=== PATIENT | male | born 1950 | race Hispanic/Latino ===

== ENCOUNTER 2018-02-27 12:50 | Observation (INO) | payer MEDICARE ==
[~2018-02-27] VITALS: Ht 167.6 cm; Wt 62.1 kg
[~2018-02-27 12:50] MED LIST: INSULIN SQ; LIPITOR20 MG PO; LISINOPRIL10 MG PO; METFORMIN HCL500 MG PO; REGULAR INSULIN SQ
[2018-02-27] MEDS ORDERED: SODIUM CHLORIDE 0.9% 1000ML 1,000 ML IV STA (13:10)
[2018-02-27] MEDS ORDERED: SODIUM CHLORIDE 0.9% 1000ML 1,000 ML ONE (13:12)
[2018-02-27 13:22] LABS: BASOPHILS % 0.2 % (0.0-1.0); EOSINOPHILS % 0.1 % (0.0-6.0); HEMATOCRIT 34.1 % (38.2-49.6); HEMOGLOBIN 11.8 g/dL (14.0-18.0); LYMPHOCYTES # (AUTO) 1.1 (1.0-3.2); LYMPHOCYTES % 13.9 % (18.0-39.1); MEAN CORPUSCULAR HEMOGLOBIN 30.3 pg (28-32); MEAN CORPUSCULAR HGB CONC 34.6 g/dL (31-35); MEAN CORPUSCULAR VOLUME 87.7 fL (81-99); MONOCYTES # (AUTO) 0.5 (0.2-0.8); MONOCYTES % 6.5 % (4.4-11.3); NEUTROPHILS # (AUTO) 6.3 (2.1-6.9); NEUTROPHILS % 78.9 % (38.7-80.0); PLATELET COUNT 250 x10e3/uL (140-360); RED BLOOD COUNT 3.89 x10e6/uL (4.3-5.7)
[2018-02-27 13:32] LABS: INR 0.99; PROTHROMBIN TIME 12.3 seconds (11.9-14.5)
[2018-02-27 13:33] LABS: PARTIAL THROMBOPLASTIN TIME 26.9 seconds (23.8-35.5)
--- NOTE | 2018-02-27 13:38 | Diagnostic Imaging Report ---
PROCEDURE:CHEST SINGLE (PORTABLE) TECHNIQUE:Portable AP chest INDICATION:Dizziness COMPARISON:None. FINDINGS: Lungs are clear and symmetrically inflated. No pleural effusions. Normal heart size, mediastinal contour, pulmonary vasculature. CONCLUSION: Normal study. Dictated by: Taye Burnett M.D. on 02/27/2018 at 13:41 Electronically approved by: Taye Burnett M.D. on 02/27/2018 at 13:41
[2018-02-27 13:42] LABS: ALANINE AMINOTRANSFERASE 9 IU/L (0-55); ALBUMIN/GLOBULIN RATIO 1.9 (0.8-2.0); ALKALINE PHOSPHATASE 58 IU/L (40-150); AMYLASE 97 U/L (25-125); ANION GAP 12.2 mmol/L (8-16); BLOOD UREA NITROGEN 16 mg/dL (7-26); BUN/CREATININE RATIO 11 (6-25); CALCIUM 9.4 mg/dL (8.4-10.2); CARBON DIOXIDE 28 mmol/L (22-29); CHLORIDE 105 mmol/L (98-107); CREATINE KINASE 68 IU/L (30-200); CREATININE, SERUM 1.43 mg/dL (0.72-1.25); EST GLOMERULAR FILTRATION RATE 49 ML/MIN (60-); GLUCOSE 195 mg/dL (74-118); LIPASE 23 U/L (8-78); POTASSIUM 4.2 mmol/L (3.5-5.1); SODIUM 141 mmol/L (136-145)
[2018-02-27 13:53] LABS: B-TYPE NATRIURETIC PEPTIDE2 < 10.0 pg/mL (0-100)
[2018-02-27 13:54] LABS: MAGNESIUM 1.1 MG/DL (1.3-2.1)
[2018-02-27] MEDS ORDERED: MAGNESIUM SULFATE 2GM/50ML 50 ML IV ONE (14:15)
[2018-02-27 15:05] LABS: BILIRUBIN,URINE NEGATIVE (NEGATIVE); CLARITY,URINE SL CLOUDY (CLEAR); COLOR,URINE YELLOW (YELLOW); KETONES,URINE TRACE (NEGATIVE); LEUKOCYTE ESTERASE ,URINE NEGATIVE (NEGATIVE); NITRITE,URINE NEGATIVE (NEGATIVE); PROTEIN,URINE DIPSTICK NEGATIVE (NEGATIVE); URINE UROBILINOGEN 0.2 mg/dL (0.2 - 1)
[2018-02-27 15:16] LABS: BACTERIA,URINE FEW /HPF; EPITHELIAL CELLS,URINE MANY /LPF; WBC,URINE (MAN) 0-5 /HPF (0-5)
[2018-02-27] MEDS ORDERED: DEXTROSE 50% SYRINGE 50 ML IV PRN (16:00)
--- NOTE | 2018-02-27 16:12 | History and Physical ---
PRIMARY CARE PHYSICIAN: Dr. Gonzalez CHIEF COMPLAINT: Dizziness. HISTORY OF PRESENT ILLNESS: This is a 67-year-old man with a history of diabetes mellitus, now developing dizziness for the past week. Went to his primary care doctor and given meclizine, but no improvement in his symptoms. Therefore, he came to the hospital. He has been drinking a lot of water at home. He denies any chest pain. Denies any nausea, vomiting or diarrhea. Denies any fever, chills or sweats. Denies any other symptoms. Denies any room spinning in particular. The patient was found to have a low blood pressure of 90/56 and heart rate of 108. Admitted for further evaluation and management. PAST MEDICAL HISTORY: Diabetes mellitus, type 2, hypertension, hyperlipidemia, cigarette abuse. PAST SURGICAL HISTORY: Unknown. ALLERGIES: PER ELECTRONIC MEDICAL RECORD. FAMILY HISTORY/SOCIAL HISTORY: Patient is . He smokes half a pack of cigarettes per day. Occasional alcohol. No illicits. MEDICATIONS: Per electronic medical record. REVIEW OF SYSTEMS: Denies any chest pain, shortness of breath, fever, chills, or sweats. PHYSICAL EXAMINATION VITAL SIGNS: Have been reviewed. GENERAL: A tired-appearing man resting in bed. HEENT: Anicteric. Pupils respond to light. No oral lesions. He has dry mucous membranes. CARDIOVASCULAR: Normal S1 and S2. LUNGS: Moderate breath sounds. ABDOMEN: Soft, nontender and nondistended. EXTREMITIES: No edema or calf tenderness. NEUROLOGICAL: Alert and oriented times 3. Moving all extremities. SKIN: Dry. PSYCHIATRIC: Normal affect. LABS: Reviewed. MEDICATIONS: Reviewed. ASSESSMENT AND PLAN: This is a 67-year-old man with: 1. Dizziness: Likely related to dehydration. Will rehydrate and reassess. 2. Hypotension: Will rehydrate the patient and reassess. 3. Tachycardia secondary to dehydration: tachycardia. Rehydrate and reassess. 4. Normocytic anemia, mild to moderate: Will follow. 5. Hypomagnesemia: Will replace and recheck. 6. Acute kidney injury: Rehydrate and reassess. 7. Diabetes mellitus, type 2: Obtain hemoglobin A1c and lipid panel. 8. Hyperlipidemia: Continue statin medication. 9. Hypertension: Will add antihypertensive medication at this time. 10. Prophylaxis: Will use sequential compression devices and Pepcid. 11. Disposition: Will obtain cardiac enzymes and follow up labs. Job#: [id number] DEEDEE
[2018-02-27 16:13] LABS: CHOL/HDL RATIO 2.6 (3.9-4.7)
[2018-02-27] MEDS: SODIUM CHLORIDE 0.9% 1000ML 1,000 ML IV SCH (16:30)
[2018-02-27] MEDS: INSULIN REGULAR, HUMAN 100 UNIT/1 ML 3ML VIAL SQ SCH ×2 (16:34→21:13)
--- OUTSIDE RECORDS SUMMARY | 2018-02-27 16:50 | XMS REPORT ---
Author Author [facility] Address Unknown Phone Unavailable Care Team Providers Care De Icer Element Winder Name Role Phone PRINCESS WEBER Unavailable Unavailable Problems This patient has no known problems. Allergies, Adverse Reactions, Alerts This patient has no known allergies or adverse reactions. Medications This patient has no known medications. Results Test Description Test Time Test Comments Text Results Atomic Results Result Comments CHEST SINGLE (PORTABLE) [place] [address] Patient Name: CANDIDO PEREZ MR #: [id number] : 1950 Age/Sex: 67/M Req #: [id number] [facility] Physician: Ordered by: JIGNESH DAVILA GOVERNMENT RELATIONS MANAGER Report #: [id number] Location: ER Room/Bed: Procedure: [id number] DX/CHEST SINGLE (PORTABLE) Exam Date: 02/27/18 Exam Time: 1313 REPORT STATUS: Signed PROCEDURE: CHEST SINGLE (PORTABLE) TECHNIQUE: Portable AP chest INDICATION: Dizziness COMPARISON: None. FINDINGS: Lungs are clear and symmetrically inflated. No pleural effusions. Normal heart size, mediastinal contour, pulmonary vasculature. CONCLUSION: Normal study. Dictated by: Suman Burnett M.D. on 02/27/2018 at 13:41 Electronically approved by: Suman Burnett M.D. on 02/27/2018 at 13:41 Dictated By: SUMAN BURNETT MD 1341 Transcribed By: YELITZA on 02/27/18 1341 COPY TO: JIGNESH DAVILA NP
[2018-02-27 18:08] VITALS: BP 152/83
[2018-02-27 18:34] VITALS: BP 152/83
[2018-02-27 18:53] VITALS: BP 152/83
[2018-02-27 19:00] VITALS: BP 123/60
[2018-02-27] MEDS ORDERED: ASPIR 8181 MG (19:01)
[2018-02-27] MEDS ORDERED: LOSARTAN POTASS25 MG (19:01)
[2018-02-27] MEDS ORDERED: CILOSTAZOL100 MG PO (19:01)
[2018-02-27] MEDS ORDERED: GLIPIZIDE5 MG PO (19:01)
[2018-02-27] MEDS ORDERED: MECLIZINE HCL12.5 MG PO (19:01)
[2018-02-27 21:26] VITALS: BP 123/60
[2018-02-27 21:31] VITALS: BP 123/60
[2018-02-28] VITALS: BP 160/69
[2018-02-28] MEDS: SODIUM CHLORIDE 0.9% 1000ML 1,000 ML IV SCH (04:47)
[2018-02-28 05:00] VITALS: BP 164/77
[2018-02-28 06:34] LABS: BASOPHILS % 0.3 % (0.0-1.0); EOSINOPHILS % 0.4 % (0.0-6.0); HEMATOCRIT 34.5 % (38.2-49.6); HEMOGLOBIN 11.8 g/dL (14.0-18.0); LYMPHOCYTES # (AUTO) 1.3 (1.0-3.2); MEAN CORPUSCULAR HEMOGLOBIN 30.4 pg (28-32); MEAN CORPUSCULAR HGB CONC 34.2 g/dL (31-35); MEAN CORPUSCULAR VOLUME 88.9 fL (81-99); MONOCYTES # (AUTO) 0.5 (0.2-0.8); MONOCYTES % 7.2 % (4.4-11.3); NEUTROPHILS # (AUTO) 5.3 (2.1-6.9); NEUTROPHILS % 73.7 % (38.7-80.0); PLATELET COUNT 237 x10e3/uL (140-360); RED BLOOD COUNT 3.88 x10e6/uL (4.3-5.7); RED CELL DISTRIBUTION WIDTH 12.7 % (11.7-14.4)
[2018-02-28 06:52] LABS: ANION GAP 12.1 mmol/L (8-16); BLOOD UREA NITROGEN 11 mg/dL (7-26); BUN/CREATININE RATIO 13 (6-25); CALCIUM 9.1 mg/dL (8.4-10.2); CARBON DIOXIDE 27 mmol/L (22-29); CHLORIDE 104 mmol/L (98-107); CREATININE, SERUM 0.83 mg/dL (0.72-1.25); EST GLOMERULAR FILTRATION RATE > 60 ML/MIN (60-); GLUCOSE 203 mg/dL (74-118); POTASSIUM 4.1 mmol/L (3.5-5.1); SODIUM 139 mmol/L (136-145)
[2018-02-28] MEDS: INSULIN REGULAR, HUMAN 100 UNIT/1 ML 3ML VIAL SQ SCH ×2 (07:30→11:30)
[2018-02-28 08:01] VITALS: BP 154/80
--- NOTE | 2018-02-28 08:40 | Discharge Summary ---
PRINCIPAL DIAGNOSES 1. Dizziness. 2. Hypotension secondary to dehydration. 3. Tachycardia secondary to dehydration. 4. Normocytic anemia, mild to moderate. 5. Hypomagnesemia. 6. Acute kidney injury. 7. Diabetes mellitus, type 2. Hemoglobin A1c 7.3. 8. Hypertension. 9. Hyperlipidemia. LDL 76, triglycerides 93. SECONDARY DIAGNOSIS: Diabetes mellitus, type 2. CHIEF COMPLAINT: Dizziness. HISTORY OF PRESENT ILLNESS: This is a 67-year-old man with dizziness. Refer to the H and P for further details. HOSPITAL COURSE: The patient was found to have dizziness. He was dehydrated and had acute kidney injury. He had normocytic anemia and hypomagnesemia. Magnesium was replaced. The patient is doing better and currently appropriate for discharge and follow up. DISCHARGE MEDICATIONS: Per electronic medical record. FOLLOWUP: Primary care doctor in 1 week. CONDITION ON DISCHARGE: Stable and improved. DISCHARGE LOCATION: Home. ТАТЬЯНА PALMER MD Job#: [id number] [place]
[2018-02-28] MEDS ORDERED: ATORVASTATIN 20 MG TAB PO SCH (09:00)
[2018-02-28 12:00] VITALS: BP 155/75
[2018-02-28 12:09] VITALS: BP 155/75
== END 2018-02-28 13:08 | disposition home or self-care (01) ==
LOC: ER 12:50 → ERHOLD 16:47 → IMCU 17:24
PROVIDERS: ADMIT Internal Medicine; ATTEND Internal Medicine
DX: E86.0 Dehydration (principal); R53.1 Weakness; E83.42 Hypomagnesemia; R42 Dizziness and giddiness; E11.9 Type 2 diabetes mellitus without complications; Z72.0 Tobacco use; I95.9 Hypotension, unspecified; R00.0 Tachycardia, unspecified; D64.9 Anemia, unspecified; N17.9 Acute kidney failure, unspecified; I10 Essential (primary) hypertension; E78.5 Hyperlipidemia, unspecified
CPT/HCPCS: 36415 ×2; 71045; 80048; 80053; 80061; 81001; 82150; 82550; 82553; 82948 ×2; 83036; 83605; 83690; 83735; 83880; 84443; 84484; 85025 ×2; 85610; 85730; 87040; 93005; 96372; 97139; 99284; G0378 ×2; J7030 ×2

== ENCOUNTER → 2018-03-03 | Outpatient (CLI) | payer MEDICARE ==
[~2018-03-03] MED LIST changes: +ASPIR 8181 MG; +CILOSTAZOL100 MG PO; +GLIPIZIDE5 MG PO; +LOSARTAN POTASS25 MG; +MECLIZINE HCL12.5 MG PO
== END ==
LOC: CARD 13:26
PROVIDERS: ATTEND Internal Medicine
DX: R42 Dizziness and giddiness (principal)
CPT/HCPCS: 93880

== ENCOUNTER 2018-05-16 11:10 | Emergency (ER) | payer MEDICARE ==
[~2018-05-16] VITALS: Ht 167.6 cm; Wt 62.1 kg
[2018-05-16 12:14] LABS: BASOPHILS % 0.5 % (0.0-1.0); EOSINOPHILS % 0.2 % (0.0-6.0); HEMATOCRIT 35.8 % (38.2-49.6); HEMOGLOBIN 12.3 g/dL (14.0-18.0); LYMPHOCYTES % 16.6 % (18.0-39.1); MEAN CORPUSCULAR HEMOGLOBIN 30.8 pg (28-32); MEAN CORPUSCULAR HGB CONC 34.4 g/dL (31-35); MEAN CORPUSCULAR VOLUME 89.5 fL (81-99); MONOCYTES # (AUTO) 0.4 (0.2-0.8); MONOCYTES % 7.1 % (4.4-11.3); NEUTROPHILS # (AUTO) 4.4 (2.1-6.9); NEUTROPHILS % 74.4 % (38.7-80.0); PLATELET COUNT 302 x10e3/uL (140-360); RED CELL DISTRIBUTION WIDTH 12.6 % (11.7-14.4)
[2018-05-16 12:18] LABS: INR 0.96
[2018-05-16 12:19] LABS: PARTIAL THROMBOPLASTIN TIME 26.9 seconds (23.8-35.5)
--- NOTE | 2018-05-16 12:19 | Diagnostic Imaging Report ---
PROCEDURE: X-RAY CHEST, TWO VIEWS COMPARISON: Patients [facility], DX, CHEST SINGLE (PORTABLE), 02/27/2018, 13:24. INDICATIONS: VERTIGO FINDINGS: LUNGS: No consolidations or edema. PLEURA: No effusions or pneumothorax. HEART \T\ MEDIASTINUM: The heart is within normal size-limits. Calcification within the aorta. BONES \T\ SOFT TISSUES: No acute findings. CONCLUSION: No acute thoracic abnormality. Kailash Padgett D.O. Dictated by: Kailash Padgett D.O. on 05/16/2018 at 12:25 Electronically approved by: Kailash Padgett D.O. on 05/16/2018 at 12:25
--- NOTE | 2018-05-16 12:20 | Diagnostic Imaging Report ---
Exam: Head CT without contrast History: Dizziness Comparison studies: None Technique: Axial images were obtained from the skull base to the vertex. Coronal and sagittal images reconstructed from the axial data. Intravenous contrast: None Findings: Scalp: No abnormalities. Bones: No fractures, blastic or lytic lesions. Brain sulci: Mild prominent.. Ventricles: Mild compensatory dilatation. No hydrocephalus. Extra-axial spaces: No masses, no fluid collection. Parenchyma: No abnormal densities. No masses, acute hemorrhage, acute or chronic vascular insults. Sellar/suprasellar region: No abnormalities. Craniocervical junction: Patent foramen magnum. No Chiari one malformation. Incidental findings: Atherosclerotic calcifications in the carotid siphons and intradural vertebral arteries. Right intraocular lens replacement related to previous cataract surgery. IMPRESSION: 1. No acute intracranial abnormalities. 2. Mild age-related generalized volume loss. Signed by: Dr. Mati Yu M.D. on 05/16/2018 12:17 PM
[2018-05-16 12:28] LABS: ALANINE AMINOTRANSFERASE 8 IU/L (0-55); ALBUMIN 3.8 g/dL (3.5-5.0); ALBUMIN/GLOBULIN RATIO 1.4 (0.8-2.0); ALKALINE PHOSPHATASE 65 IU/L (40-150); ANION GAP 16.2 mmol/L (8-16); BLOOD UREA NITROGEN 21 mg/dL (7-26); BUN/CREATININE RATIO 23 (6-25); CALCIUM 9.2 mg/dL (8.4-10.2); CARBON DIOXIDE 26 mmol/L (22-29); CHLORIDE 101 mmol/L (98-107); CREATINE KINASE 70 IU/L (30-200); EST GLOMERULAR FILTRATION RATE > 60 ML/MIN (60-); GLUCOSE 222 mg/dL (74-118); POTASSIUM 4.2 mmol/L (3.5-5.1); SODIUM 139 mmol/L (136-145)
[2018-05-16 13:03] LABS: BILIRUBIN,URINE NEGATIVE (NEGATIVE); CLARITY,URINE CLEAR (CLEAR); COLOR,URINE YELLOW (YELLOW); KETONES,URINE TRACE (NEGATIVE); LEUKOCYTE ESTERASE ,URINE NEGATIVE (NEGATIVE); NITRITE,URINE NEGATIVE (NEGATIVE); PROTEIN,URINE DIPSTICK NEGATIVE (NEGATIVE); URINE UROBILINOGEN 0.2 mg/dL (0.2 - 1)
[2018-05-16 13:33] LABS: EPITHELIAL CELLS,URINE RARE /LPF; RBC,URINE 0-5 /HPF (0-5)
[2018-05-16] MEDS ORDERED: DIAZEPAM 5 MG TAB PO STA (16:30)
== END 2018-05-16 18:21 | disposition left against medical advice (07) ==
LOC: ER 11:10
DX: R07.89 Other chest pain (principal); R53.1 Weakness; R42 Dizziness and giddiness; R55 Syncope and collapse
CPT/HCPCS: 36415; 70450; 71046; 80053; 81001; 82550; 82553; 84484; 85025; 85610; 85730; 99284